=== PATIENT | male | born 1980 | race Caucasian/White ===

== ENCOUNTER 2016-11-22 06:15 | Inpatient (IN) | payer MEDICAID ==
[~2016-11-22] VITALS: Ht 180.3 cm; Wt 83.0 kg
[2016-11-22 07:25] LABS: Basophils # (auto) 0.1 uL; Basophils % (auto) 0.6 % (0.0-2.0); Eosinophils # (auto) 0.3 uL; Eosinophils % (auto) 2.1 % (0.0-7.0); Hemoglobin 12.2 g/dL (13.5-17.5); Lymphocytes # (auto) 2.1 uL; Lymphocytes % (auto) 17.5 % (10.0-50.0); Mean Corpuscular Hgb Conc. 32.1 g/dL (32.0-36.0); Mean Corpuscular Volume 90.2 fL (80.0-100.0); Mean Platelet Volume 9.4 fL (7.4-10.4); Monocytes # (auto) 1.2 uL; Monocytes % (auto) 9.7 % (0.0-12.0); Neutrophils # (auto) 8.5 uL; Neutrophils % (auto) 70.1 % (37.0-80.0); Platelet Count (auto) 228 10^3/uL (140-450); Red Cell Distribution Width 13.6 % (11.6-16.0); White Blood Cell 12.2 10^3/uL (4.4-10.8)
[2016-11-22 07:38] LABS: Albumin 3.8 g/dL (3.4-5.0); BUN/Creatinine Ratio 16.1; Calcium 8.7 mg/dL (8.5-10.1); Potassium 3.9 mmol/L (3.5-5.1)
[2016-11-22 07:41] LABS: Bilirubin, Total 0.6 mg/dL (0.2-1.0)
[2016-11-22] MEDS ORDERED: SODIUM CHLORIDE 0.9% 1,000 ML IV ONE (08:55)
[2016-11-22] MEDS ORDERED: metroNIDAZOLE 500MG/100ML 100 ML IV ONE (09:00)
[2016-11-22] MEDS ORDERED: cefTRIAXone 1GM/50ML D5W 50 ML IV ONE (09:00)
[2016-11-22] MEDS ORDERED: SODIUM CHLORIDE 0.9% 1,000 ML IV SCH (10:27)
[2016-11-22] MEDS ORDERED: HYDROcodone-ACET 5/325MG TAB PO PRN (10:30)
[2016-11-22] MEDS ORDERED: PROMETHAZINE HCL 25 MG/ML 1ML IV PRN (10:30)
[2016-11-22] MEDS ORDERED: LACTULOSE 20Gm/30ML SOLN PO PRN (10:30)
[2016-11-22] MEDS ORDERED: TEMAZEPAM 15 MG CAP PO PRN (10:30)
[2016-11-22] MEDS ORDERED: MORPHINE SULF INJ 2 MG/ML SYRINGE 1ML IV PRN ×2 (10:30)
[2016-11-22] MEDS ORDERED: NITROGLYCERIN 0.4 MG SL TAB SL PRN (10:30)
[2016-11-22] MEDS ORDERED: ACETAMINOPHEN 500 MG TAB PO PRN (10:30)
[2016-11-22] MEDS ORDERED: LORazepam 0.5 MG TAB PO PRN (10:30)
[2016-11-22] MEDS ORDERED: CLINDAMYCIN 600MG IV 50 ML IV SCH (11:00)
[2016-11-22] MEDS ORDERED: IOHEXOL 300 MG/ML 100ML BOTTLE IJ ONE (11:24)
[2016-11-22] MEDS ORDERED: TRAZ50TA2 PO (14:29)
[2016-11-22] MEDS ORDERED: CYCL1TAB18 PO (14:29)
[2016-11-22 16:48] VITALS: BP 130/84
[2016-11-23] MEDS ORDERED: cefTRIAXone 1GM/50ML D5W 50 ML IV SCH (09:00)
== END 2016-11-22 16:55 | disposition left against medical advice (07) | DRG 383 ==
LOC: ER 06:18 → TELE 06:19 → TELE-E-ADS 11:46 → TELE-CENTR 13:42
PROVIDERS: ADMIT Internal Medicine; ATTEND Internal Medicine
DX: L03.115 Cellulitis of right lower limb (principal); D72.829 Elevated white blood cell count, unspecified; F12.90 Cannabis use, unspecified, uncomplicated; F17.210 Nicotine dependence, cigarettes, uncomplicated; M65.9 Synovitis and tenosynovitis, unspecified; Z82.49 Family history of ischemic heart disease and other diseases of the circulatory system; Z87.81 Personal history of (healed) traumatic fracture; Z53.21 Procedure and treatment not carried out due to patient leaving prior to being seen by health care provider
CPT/HCPCS: 36415; 71010; 73030; 73610; 80053; 83605; 85025; 85379; 85652; 87040; G0434; J0696; J3490

== ENCOUNTER 2016-11-22 22:05 | Emergency (ER) | payer MEDICAID ==
[~2016-11-22] VITALS: Ht 180.3 cm; Wt 83.9 kg
[~2016-11-22 22:05] MED LIST: CYCL1TAB18 PO; TRAZ50TA2 PO
[2016-11-23 00:08] LABS: Basophils # (auto) 0.2 uL; Basophils % (auto) 1.2 % (0.0-2.0); Eosinophils # (auto) 0.2 uL; Hematocrit 38.8 % (41.0-53.0); Hemoglobin 12.8 g/dL (13.5-17.5); Lymphocytes # (auto) 1.4 uL; Lymphocytes % (auto) 9.5 % (10.0-50.0); Mean Corpuscular Hemoglobin 30.1 pg (28.0-32.0); Mean Corpuscular Hgb Conc. 33.1 g/dL (32.0-36.0); Mean Corpuscular Volume 91.1 fL (80.0-100.0); Mean Platelet Volume 9.3 fL (7.4-10.4); Monocytes # (auto) 1.1 uL; Monocytes % (auto) 7.5 % (0.0-12.0); Neutrophils # (auto) 12.1 uL; Neutrophils % (auto) 80.8 % (37.0-80.0); Platelet Count (auto) 198 10^3/uL (140-450); Red Cell Distribution Width 13.4 % (11.6-16.0)
[2016-11-23 00:19] LABS: Albumin 3.7 g/dL (3.4-5.0); Anion Gap 8 (5-15); Aspartate Aminotransferase 18 U/L (15-37); BUN/Creatinine Ratio 13.2; Blood Urea Nitrogen 19 mg/dL (7-18); Calcium 8.8 mg/dL (8.5-10.1); Carbon Dioxide 27 mmol/L (21-32); Chloride 106 mmol/L (98-107); GFR African American 72 mL/min; GFR Non-African American 60 mL/min; Glucose 109 mg/dL (74-106); Potassium 4.5 mmol/L (3.5-5.1); Sodium 141 mmol/L (136-145)
[2016-11-23 00:21] LABS: Alkaline Phosphatase 72 U/L (45-117); Bilirubin, Total 0.9 mg/dL (0.2-1.0); Total Protein 6.9 g/dL (6.4-8.2)
[2016-11-23] MEDS ORDERED: SODIUM CHLORIDE 0.9% 1,000 ML IV ONE (07:15)
[2016-11-23] MEDS ORDERED: cefTRIAXone 1GM/50ML D5W 50 ML IV ONE (07:15)
[2016-11-23 10:46] LABS: Urine Bilirubin Negative (Negative); Urine Blood Negative /uL (Negative); Urine Color Yellow (Yellow); Urine Glucose Normal (Normal); Urine Ketone Negative (Negative); Urine Mucus FEW (None Seen); Urine Nitrite Negative (Negative); Urine RBC 1 /hpf (0 - 3); Urine Urobilinogen Normal (Negative); Urine pH 5.5 (5.0-8.0)
[2016-11-23 11:18] VITALS: BP 126/76
[2016-11-23] MEDS ORDERED: BACITRACIN-POLYMYXIN B TOPICAL OINT UD TOP ONE (11:22)
[2016-11-23] MEDS ORDERED: BACITRACIN TOP OINT 1 UD PKG TOP ONE (11:30)
== END 2016-11-23 11:37 | disposition home or self-care (01) ==
LOC: ER 22:10
DX: S91.301D Unspecified open wound, right foot, subsequent encounter (principal); L03.115 Cellulitis of right lower limb; F12.10 Cannabis abuse, uncomplicated; F15.10 Other stimulant abuse, uncomplicated; F17.210 Nicotine dependence, cigarettes, uncomplicated; X58.XXXD Exposure to other specified factors, subsequent encounter
CPT/HCPCS: 36415; 80053; 80320; 81001; 85025; 96361; 96365; 99285; G0434; J0696; J7030

== ENCOUNTER 2017-03-29 23:28 | Emergency (ER) | payer MEDICAID ==
[~2017-03-29] VITALS: Ht 180.3 cm; Wt 78.0 kg
[2017-03-29 23:30] VITALS: BP 160/77
== END 2017-03-30 03:06 | disposition left against medical advice (07) ==
LOC: ER 23:30
DX: J32.9 Chronic sinusitis, unspecified (principal); F17.210 Nicotine dependence, cigarettes, uncomplicated; F12.10 Cannabis abuse, uncomplicated

== ENCOUNTER 2019-09-02 08:48 | Emergency (ER) | payer MEDICAID ==
[~2019-09-02] VITALS: Ht 180.3 cm; Wt 95.3 kg
[2019-09-02 08:59] VITALS: BP 127/76
== END 2019-09-02 09:43 | disposition left against medical advice (07) ==
LOC: EDBD 08:48 → ER 08:52
DX: R10.31 Right lower quadrant pain (principal); F15.10 Other stimulant abuse, uncomplicated; F12.10 Cannabis abuse, uncomplicated; R11.2 Nausea with vomiting, unspecified; F17.210 Nicotine dependence, cigarettes, uncomplicated

== ENCOUNTER 2021-10-21 06:47 | Emergency (ER) | payer MEDICAID ==
[~2021-10-21] VITALS: Ht 180.3 cm; Wt 90.7 kg
[~2021-10-21 06:47] MED LIST changes: +CYCL-839 PO; -CYCL1TAB18 PO
[2021-10-21 07:59] VITALS: BP 128/79
== END 2021-10-21 08:48 | disposition home or self-care (01) ==
LOC: ER 06:47
DX: S90.32XA Contusion of left foot, initial encounter (principal); F17.210 Nicotine dependence, cigarettes, uncomplicated; Z79.899 Other long term (current) drug therapy; W22.8XXA Striking against or struck by other objects, initial encounter; Y93.89 Activity, other specified; Y92.89 Other specified places as the place of occurrence of the external cause; Y99.8 Other external cause status
CPT/HCPCS: 73630

== ENCOUNTER 2023-04-16 14:55 | Emergency (ER) | payer MEDICAID ==
[~2023-04-16] VITALS: Ht 180.3 cm; Wt 94.6 kg
[~2023-04-16 14:55] MED LIST changes: +TRAZ-227 PO; -TRAZ50TA2 PO
[2023-04-16 15:10] VITALS: BP 157/82
== END 2023-04-16 20:49 | disposition left against medical advice (07) ==
LOC: ER 14:55
DX: M25.512 Pain in left shoulder (principal); Z53.21 Procedure and treatment not carried out due to patient leaving prior to being seen by health care provider

== ENCOUNTER 2024-02-10 01:13 | Emergency (ER) | payer MEDICAID ==
[~2024-02-10] VITALS: Ht 180.3 cm; Wt 90.9 kg
[2024-02-10 02:01] VITALS: TEMP 97.2; O2SAT 95
[2024-02-10] MEDS: ONDANSETRON ODT 4 MG TAB PO ONE (03:07)
[2024-02-10] MEDS: MORPHINE SULFATE INJ 2 MG/ml SYRG IM ONE (03:08)
[2024-02-10 03:41] VITALS: BP 118/63; PULSE 76; RESP 18
== END 2024-02-10 05:07 | disposition left against medical advice (07) ==
LOC: ER 01:13
DX: S05.11XA Contusion of eyeball and orbital tissues, right eye, initial encounter (principal); G93.9 Disorder of brain, unspecified; F17.210 Nicotine dependence, cigarettes, uncomplicated; Z90.89 Acquired absence of other organs; W22.8XXA Striking against or struck by other objects, initial encounter; Y93.89 Activity, other specified; Y92.89 Other specified places as the place of occurrence of the external cause; Y99.8 Other external cause status
CPT/HCPCS: 70450; 70486; 96372; 99285; J2270; Q0162

== ENCOUNTER 2024-02-10 10:02 | Emergency (ER) | payer MEDICAID ==
[~2024-02-10] VITALS: Ht 180.3 cm; Wt 91.3 kg
[2024-02-10 10:11] VITALS: BP 124/94; PULSE 120; RESP 18; O2SAT 96
[2024-02-10] MEDS: IBUPROFEN 600 MG TAB PO ONE (13:31)
[2024-02-10] MEDS: ACETAMINOPHEN 500 MG TAB PO ONE (13:32)
== END 2024-02-10 13:33 | disposition left against medical advice (07) ==
LOC: ER 10:02
DX: Q27.30 Arteriovenous malformation, site unspecified (principal); F17.210 Nicotine dependence, cigarettes, uncomplicated; Z90.89 Acquired absence of other organs; Z79.899 Other long term (current) drug therapy

== ENCOUNTER 2024-07-30 16:07 | Emergency (ER) | payer MEDICAID ==
[~2024-07-30] VITALS: Ht 180.3 cm; Wt 100.4 kg
[2024-07-30 16:29] VITALS: BP 153/91; PULSE 66; RESP 18; O2SAT 98
[2024-07-30] MEDS ORDERED: ACETAMINOPHEN 325 MG TAB PO ONE (17:30)
[2024-07-31] MEDS ORDERED: ACET-1080 PO (07:13)
[2024-07-31] MEDS ORDERED: CEPH500C PO (07:13)
== END 2024-07-30 20:33 | disposition left against medical advice (07) ==
LOC: ER 16:07
DX: R41.82 Altered mental status, unspecified (principal); R53.1 Weakness; F17.210 Nicotine dependence, cigarettes, uncomplicated; F15.90 Other stimulant use, unspecified, uncomplicated; Z90.89 Acquired absence of other organs; Z79.899 Other long term (current) drug therapy

== ENCOUNTER 2024-07-31 05:28 | Emergency (ER) | payer MEDICAID ==
[~2024-07-31] VITALS: Ht 180.3 cm; Wt 98.0 kg
[2024-07-31 05:35] VITALS: BP 124/89; PULSE 107; RESP 16; TEMP 97.9; O2SAT 96
[2024-07-31] MEDS: ACETAMINOPHEN 500 MG TAB PO ONE (07:00)
[2024-07-31] MEDS: cefTRIAXone SOD 1,000 MG VL IM ONE (07:06)
[2024-07-31] MEDS ORDERED: ACET-1080 PO (07:13)
[2024-07-31] MEDS ORDERED: CEPH500C PO (07:13)
== END 2024-07-31 07:22 | disposition home or self-care (01) ==
LOC: ER 05:28
DX: R21 Rash and other nonspecific skin eruption (principal); L03.116 Cellulitis of left lower limb; L03.115 Cellulitis of right lower limb; F17.210 Nicotine dependence, cigarettes, uncomplicated; F12.90 Cannabis use, unspecified, uncomplicated; Z90.89 Acquired absence of other organs
CPT/HCPCS: 96372; 99283; J0696

== ENCOUNTER 2025-03-12 19:35 | Emergency (ER) | payer MEDICAID ==
[~2025-03-12] VITALS: Ht 180.3 cm; Wt 103.1 kg
[~2025-03-12 19:35] MED LIST changes: +ACET-1080 PO; +CEPH500C PO
--- NOTE | 2025-03-12 20:40 | ED.PDOC ---
HPI (NEURO) HPI Comments PT PRESENTED TO ED FOR CHRONIC HEADACHES, NAUSEA AND BLURRED VISION THAT WORSENED X3 WEEKS AGO AFTER BEING SENT TO MRI. PT STATED HE WAS RECEIVED A REFFERAL FROM PCP FOR PAIN MANAGEMENT. BG-118. Chief Complaint: Headache Time Seen by MD: 19:56 Primary Care Provider: NONE Reviewed Notes: Nurses Notes, Medications, Allergies Information Source: Patient Past Medical History PAST MEDICAL HISTORY: Denies Surgical History: Tonsillectomy Surgical History (Other): BRAIN TUMOR Family History Family History: Reviewed,noncontributory to illness Social History Smoker: Cigarettes, Less Than 1 Pack/Day Alcohol: Denies ETOH Use Drugs: Marijuana Lives In: Home Constitutional: denies: chills, diaphoresis, fatigue, fever, malaise, sweats, weakness, others EENTM: denies: blurred vision, double vision, ear bleeding, ear discharge, ear drainage, ear pain, ear ringing, eye pain, eye redness, hearing loss, mouth pain, mouth swelling, nasal discharge, nose bleeding, nose congestion, nose fidencio n, photophobia, tearing, throat pain, throat swelling, voice changes, others Respiratory: denies: cough, hemoptysis, orthopnea, SOB at rest, shortness of breath, SOB with excertion, stridor, wheezing, others Cardiovascular: denies: chest pain, dizzy spells, diaphoresis, Dyspnea on exertion, edema, irregular heart beat, left arm pain, lightheadedness, palpitations, PND, syncope, others Gastrointestinal: denies: abdomen distended, abdominal pain, blood streaked bowels, constipated, diarrhea, dysphagia, difficulty swallowing, hematemesis, melena, nausea, poor appetite, poor fluid intake, rectal bleeding, rectal pain, vomiting, others Genitourinary: denies: burning, dysuria, flank pain, frequency, hematuria, incontinence, penile discharge, penile sore, pain, testicle pain, testicle swelling, urgency, others Neurological: reports: headache; denies: dizziness, fainting, left sided numbn ess, left sided weakness, numbness, paresthesia, pre-existing deficit, right sided numbness, right sided weakness, seizure, speech problems, tingling, tremors, weakness, others Musculoskeletal: denies: back pain, gout, joint pain, joint swelling, muscle pain, muscle stiffness, neck pain, others Integumetry: denies: bruises, change in color, change in hair/nails, dryness, laceration, lesions, lumps, rash, wounds, others Allergic/Immunocompromised: denies: Difficulty Healing, Frequent Infections, Hives, Itching, others Hematologic/Lymphatic: denies: anemia, blood clots, easy bleeding, easy bruising, swollen glands, others Endocrine: denies: excessive hunger, excessive sweating, excessive thirst, excessive urination, flushing, intolerance to cold, intolerance to heat, unexplained weight gain, unexplained weight loss, others Psychiatric: denies: anxiety, bipolar disorder, depression, hopeless, panic disorder, schizophrenia, sleepless, suicidal, others Physical Exam General Appearance: No Apparent Distress, Normal HEENT: Normal ENT Inspection, Pharynx Normal, TMs Normal Neck: Full Range of Motion, Non-Tender Respiratory: Lungs Clear, No Respiratory Distress, Normal Breath Sounds Cardiovascular: No Edema, No JVD, No Murmur, No Gallop, Normal Peripheral Pulses, Regular Rate/Rhythm Breast Exam: Deferred Gastrointestinal: No Organomegaly, Non Tender, No Pulsatile Mass, Normal Bowel Sounds, Soft Genitalia: Deferred Pelvic: Deferred Rectal: Deferred Extremities: Normal capillary refill, Normal inspection, Normal range of motion, Non-tender, No pedal edema Musculoskeletal : Apperance: Normal Neurologic: Alert, service coordinator II-XII nml as Tested, No Motor Deficits, Normal Affect, Normal Mood, No Sensory Deficits Cerebellar Function: Normal Reflexes: Normal Skin: Dry, Normal Color, Warm Lymphatic: No Adenopathy Was a procedure done? Was a procedure done?: No Differential Diagnosis (SZ) Headache: Epidural Hemorrhage, Intracerebral Hemorrhage, Subarachnoid Hem orrhage, Subdural Hemorrhage, Meningitis, Post-Traumatic X-Ray, Labs, Meds, VS Vital Signs Date Time Temp Pulse Resp B/P (MAP) Pulse Ox O2 Delivery O2 Flow Rate FiO2 03/12/25 20:36 98.0 118 16 142/102 (115) 94 98.0 Lab Test 03/12/25 20:35 Range/Units POC Glucose 118 H 70-106 mg/dl X-Ray, Labs, Meds, VS Comment PATIENT WAS GIVEN TORADOL 60 MG IM, DECADRON 10 MG IM, AND HYDROCODONE 10 MG P.O.. REPORTS IMPROVEMENT IN PAIN AND FUNCTION REQUESTING DISCHARGE AT THIS TIME. ADVISED PATIENT TO FOLLOW UP WITH PAIN MANAGEMENT REFERRAL FOR CONTINUED REFILLS OF HIS NORCO. 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 ADVISED TO REST INCREASE P.O. FLUIDS WITH ELECTROLYTES ER RETURN PRECAUTIONS GIVEN PATIENT INDICATES UNDERSTANDING AND AGREES WITH DISCHARGE PLAN OF CARE. Time of 1ST Reevaluation: 20:39 Reevaluation 1ST: Unchanged Time of 2ND Reevaluation: 21:45 Reevaluation 2ND: Improved Patient Education/Counseling: Diagnosis, Treatment, Prognosis, Need For Follow Up Family Education/Counseling: No Family Present Departure 1 Departure Time of Disposition: 21:50 Impression: Primary Impression: Post-traumatic headache, not intractable Qualified Codes: G44.319 - Acute post-traumatic headache, not intractable Disposition: 01 HOME / SELF CARE / HOMELESS Condition: Stable Discharged With: Self Critical Care Note Critical Care Time?: No Stability Stability form required: RUIZ Tai March 12, 2025 20:40
[2025-03-13] MEDS: KETOROLAC TROMETH 60MG/2ML VIAL IM ONE (01:40)
[2025-03-13] MEDS: DexAMETHasone SOD PHOS 10MG/1ML VIAL INJ IM ONE (01:41)
[2025-03-13] MEDS: HYDROcodone-ACET 10/325MG TAB PO ONE (01:41)
[2025-03-13 01:44] VITALS: BP 126/89; PULSE 94; RESP 16; TEMP 97.7; O2SAT 97
== END 2025-03-13 01:56 | disposition home or self-care (01) ==
LOC: ER 19:35
DX: G44.319 Acute post-traumatic headache, not intractable (principal); H53.8 Other visual disturbances; F17.210 Nicotine dependence, cigarettes, uncomplicated; F19.90 Other psychoactive substance use, unspecified, uncomplicated; Z90.89 Acquired absence of other organs; Z98.890 Other specified postprocedural states
CPT/HCPCS: 82947; 96372; 99284; J1100; J1885; 82962